=== PATIENT | male | born 1955 | race Native Hawaiian/Other Pacific Islander ===

== ENCOUNTER → 2019-08-22 | Outpatient (CLI) | payer OTHER | LOC: LABW 10:48 | DX: R80.9 Proteinuria, unspecified (principal) | CPT/HCPCS: 84156 ==

== ENCOUNTER 2019-09-02 15:28 | Outpatient (CLI) | payer OTHER | END 2019-09-02 19:48 | disposition home or self-care (01) | LOC: LABW 15:28 | DX: D45 Polycythemia vera (principal) | CPT/HCPCS: 85014; 85018 ==